=== PATIENT | male | born 1945 | race Hispanic/Latino ===

== ENCOUNTER → 2018-03-03 | Outpatient (CLI) | payer OTHER | END | disposition home or self-care (01) | LOC: SHCH 10:11 | PROVIDERS: ATTEND Internal Medicine Cardiovascular Disease | DX: R09.89 Other specified symptoms and signs involving the circulatory and respiratory systems (principal); R01.1 Cardiac murmur, unspecified | CPT/HCPCS: 93306 ==

== ENCOUNTER → 2018-03-10 | Outpatient (CLI) | payer OTHER | END | disposition home or self-care (01) | LOC: SHCH 09:56 | PROVIDERS: ATTEND Internal Medicine Cardiovascular Disease | DX: I65.23 Occlusion and stenosis of bilateral carotid arteries (principal); I73.9 Peripheral vascular disease, unspecified | CPT/HCPCS: 93880; 93925 ==

== ENCOUNTER 2018-04-18 07:24 | Day surgery (SDC) | payer OTHER ==
[2018-04-14 13:51] VITALS: BP 161/71
[2018-04-14 14:01] LABS: BASOPHILS % (AUTO) 0.8 % (0.0-5.0); EOSINOPHILS % (AUTO) 4.3 % (0.0-8.0); MEAN CORPUSCULAR HEMOGLOBIN 30.4 pg (27.0-33.0); MEAN CORPUSCULAR HGB CONC 33.6 g/dL (32.0-36.0); MEAN CORPUSCULAR VOLUME 90.7 fL (79-99); MONOCYTES % (AUTO) 8.5 % (3.0-13.0); NEUTROPHILS % (AUTO) 51.4 % (40.0-77.0); PLATELET COUNT (AUTO) 235 K/uL (130-400); RED BLOOD CELL COUNT(AUTO) 4.64 MIL/uL (4.50-6.20); WHITE BLOOD COUNT (AUTO) 8.1 K/uL (4.8-10.8)
[2018-04-14 14:06] LABS: CREATININE 1.4 mg/dL (0.5-1.5); POTASSIUM 5.1 mmol/L (3.5-5.1)
[2018-04-14 14:29] LABS: INR 0.86 (0.85-1.15); PARTIAL THROMBOPLASTIN TIME 25.3 SEC (26.3-35.5); PROTHROMBIN TIME 9.1 SEC (9.6-11.6)
[~2018-04-18] VITALS: Ht 175.3 cm; Wt 82.9 kg
[2018-04-18] VITALS (15 sets, daily range): BP systolic 92–164; BP diastolic 49–88
[~2018-04-18 07:24] MED LIST: ASPI-1197 PO; CANA300T PO; CLOP75TA14 PO; GLIP-220 PO; LEVO50TA11 PO; METO25TA6 PO; RAMI2.5C16 PO; REPA0.5T4 PO; SIMV40TA5 PO; SITA100T12 PO
[2018-04-18] MEDS ORDERED: SODIUM CHLORIDE 0.9% 1000ML 1,000 ML IV SCH (08:00)
[2018-04-18] MEDS ORDERED: LIDOCAINE HCL 2% VISCOUS 15 ML UDCUP ONE (08:21)
[2018-04-18] MEDS ORDERED: MIDAZOLAM HCL 1 MG/ML 2ML VIAL ONE ×3 (08:22)
[2018-04-18] MEDS ORDERED: FENTANYL CITRATE PF 50 MCG/1 ML 2ML VIAL ONE (08:23)
== END 2018-04-18 12:57 | disposition home or self-care (01) ==
LOC: DAH 07:24
PROVIDERS: ATTEND Internal Medicine Cardiovascular Disease
DX: I34.0 Nonrheumatic mitral (valve) insufficiency (principal); Z79.899 Other long term (current) drug therapy; I25.10 Atherosclerotic heart disease of native coronary artery without angina pectoris; I21.3 ST elevation (STEMI) myocardial infarction of unspecified site; Z95.1 Presence of aortocoronary bypass graft; E03.9 Hypothyroidism, unspecified; I10 Essential (primary) hypertension; E11.9 Type 2 diabetes mellitus without complications; E78.5 Hyperlipidemia, unspecified; Z82.49 Family history of ischemic heart disease and other diseases of the circulatory system; Z83.3 Family history of diabetes mellitus; Z95.5 Presence of coronary angioplasty implant and graft; Z68.28 Body mass index [BMI] 28.0-28.9, adult
CPT/HCPCS: 36415; 80048; 82948 ×2; 85025; 85610; 85730; 93313; A4606; J2250 ×2; J3010; 99156; 99157

== ENCOUNTER → 2021-12-14 | Outpatient (CLI) | payer MEDICARE ==
[~2021-12-14] MED LIST changes: -ASPI-1197 PO; -CLOP75TA14 PO; -GLIP-220 PO; +GLIP10TA19 PO; -RAMI2.5C16 PO; +RAMI2.5C55 PO; +REGADENOSON 0.4 MG/5 ML PF SYG IVP SCH; -REPA0.5T4 PO; +REPA0.5T6 PO; +SIMV-46 PO; -SIMV40TA5 PO
== END | disposition home or self-care (01) ==
LOC: SHCH 07:41
PROVIDERS: ATTEND Internal Medicine Cardiovascular Disease
DX: I11.9 Hypertensive heart disease without heart failure (principal); E11.9 Type 2 diabetes mellitus without complications; E78.5 Hyperlipidemia, unspecified; E03.9 Hypothyroidism, unspecified; Z95.1 Presence of aortocoronary bypass graft
CPT/HCPCS: 78452; 96374; 93017; J2785; A9500 ×2

== ENCOUNTER → 2023-11-09 | Outpatient (CLI) | payer MEDICARE ==
[~2023-11-09] MED LIST changes: -RAMI2.5C55 PO; +RAMI2.5C57 PO; -REGADENOSON 0.4 MG/5 ML PF SYG IVP SCH
== END | disposition home or self-care (01) ==
LOC: SHCH 08:34
PROVIDERS: ATTEND Internal Medicine Cardiovascular Disease
DX: I65.23 Occlusion and stenosis of bilateral carotid arteries (principal)
CPT/HCPCS: 93880

== ENCOUNTER → 2024-06-18 | Outpatient (CLI) | payer MEDICARE ==
[~2024-06-18] MED LIST changes: +REPA0.5T12 PO; -REPA0.5T6 PO
[2024-06-18 12:40] LABS: CREATININE 1.4 mg/dL (0.5-1.3); POTASSIUM 4.7 mmol/L (3.5-5.1)
== END | disposition home or self-care (01) ==
LOC: LAB 09:18
PROVIDERS: ATTEND Internal Medicine Cardiovascular Disease
DX: I10 Essential (primary) hypertension (principal)
CPT/HCPCS: 36415; 80048

== ENCOUNTER → 2024-06-25 | Outpatient (CLI) | payer MEDICARE ==
[~2024-06-25] MED LIST changes: +IOHEXOL 350 MG/ML 100ML INFUS..BTL IV ONE; +metoPROLOL tartRATE 1 MG/ML 5ML VIAL IV ONE
--- NOTE | 2024-06-25 09:51 | HMCIMG ---
CT CARDIAC ANGIO W/CONT. CCTA HISTORY: Ischemic cardiomyopathy COMPARISON: None TECHNIQUE: Multiple sequential axial images of the chest were obtained along with the CT angiogram of the chest study. Patient was given 100 cc of Omnipaque through intravenous route. FINDINGS: There is no evidence of pulmonary nodule or parenchymal disease. No pleural effusion or pericardial effusion is seen. There is no evidence of pneumothorax. There are normal size mediastinal and hilar lymph nodes. The heart is not enlarged. Degenerative changes of the thoracolumbar spine are present. IMPRESSION: 1. No evidence of pulmonary nodule or effusion is seen. Please see CT angiogram report of coronary arteries.
== END | disposition home or self-care (01) ==
LOC: RAH 07:43
PROVIDERS: ATTEND Internal Medicine Cardiovascular Disease
DX: I25.5 Ischemic cardiomyopathy (principal); M47.815 Spondylosis without myelopathy or radiculopathy, thoracolumbar region
CPT/HCPCS: 75574; J3490; Q9967

== ENCOUNTER 2024-08-20 07:18 | Day surgery (SDC) | payer MEDICARE ==
[2024-08-17 13:01] LABS: BASOPHILS # (AUTO) 0.05 K/uL (0.00-0.20); BASOPHILS % (AUTO) 0.6 % (0.0-5.0); EOSINOPHILS % (AUTO) 3.4 % (0.0-8.0); HEMATOCRIT 37.8 % (42-54); IMMATURE GRANULOCYTE ABSOLUTE 0.02 K/uL (0-1); LYMPHOCYTES # (AUTO) 2.5 K/uL (1.0-4.8); LYMPHOCYTES % (AUTO) 27.7 % (21.0-51.0); MEAN CORPUSCULAR HEMOGLOBIN 29.9 pg (27.0-33.0); MEAN CORPUSCULAR HGB CONC 31.5 g/dL (32.0-36.0); MONOCYTES # (AUTO) 0.7 K/uL (0.1-1.0); MONOCYTES % (AUTO) 7.7 % (3.0-13.0); NEUTROPHILS # (AUTO) 5.4 K/uL (1.8-7.7); NEUTROPHILS % (AUTO) 60.4 % (40.0-77.0); PLATELET COUNT (AUTO) 283 K/uL (130-400); RED BLOOD CELL COUNT(AUTO) 3.98 MIL/uL (4.50-6.20); RED CELL DISTRIBUTION WIDTH 13.4 % (11.0-15.5); WHITE BLOOD COUNT (AUTO) 8.9 K/uL (4.8-10.8)
[2024-08-17 13:07] LABS: CREATININE 1.4 mg/dL (0.5-1.3); POTASSIUM 4.7 mmol/L (3.5-5.1)
[2024-08-17 13:10] LABS: APPEARANCE,URINE CLEAR (CLEAR); BILIRUBIN,URINE NEGATIVE (NEGATIVE); COLOR,URINE LIGHT-YELLOW (YELLOW); GLUCOSE, URINE (UA) >=1000 mg/dL (NEGATIVE); KETONES,URINE NEGATIVE (NEGATIVE); LEUKOCYTE ESTERASE ,URINE NEGATIVE Leu/uL (NEGATIVE); NITRATE,URINE NEGATIVE (NEGATIVE); OCCULT BLOOD,URINE NEGATIVE (NEGATIVE); PH,URINE 5.5 (5.0-8.0); PROTEIN,URINE NEGATIVE (NEGATIVE); UROBILINOGEN,URINE 0.2 mg/dL (0.2-1.0)
[2024-08-17 13:11] LABS: ADD UA MICROSCOPIC YES; INR 0.96 (0.85-1.15); PROTHROMBIN TIME 10.2 SEC (9.6-11.6)
[2024-08-17 13:12] VITALS: BP 170/76; PULSE 71; RESP 18; TEMP 98.2
[2024-08-17 13:12] LABS: MUCUS,URINE RARE LPF (None Seen); PARTIAL THROMBOPLASTIN TIME 26.5 SEC (26.3-35.5); WBC,URINE 0-1 /HPF (0-1)
[2024-08-17 13:19] LABS: B-TYPE NATRIURETIC PEPTIDE 231 pg/mL (0-100)
--- NOTE | 2024-08-17 14:16 | HMCIMG ---
Exam Type: CHEST 1VW Clinical Information: PREOP Comparison: None Findings: There is cardiomegaly and there is status post median sternotomy. The lungs are clear of infiltrates. Impression: Clear lungs.
--- NOTE | 2024-08-17 15:21 | EKG ---
[facility] Test Date: 2024-08-17 Test Time: 12:52:20 Pat Name: PALOMA JENNINGS Department: [facility] Room: Gender: M Manager Finance: [id number] : 1945 Requested By: Silvio SAWYER Order Number: [id number] Reading MD: Tavares Martin Measurements Intervals [place] Rate: 66 P: 39 IN: 188 QRS: 35 QRSD: 99 T: 69 QT: 386 QTc: 406 Interpretive Statements Sinus rhythm No previous ECG available for comparison Electronically Signed On 08-19-2024 18:33:50 CDT by Tavares Martin Please click the below link to view image of tracing.
--- NOTE | 2024-08-17 16:08 | NUR ---
RE: LABS REPORTED BMP RESULTS TO PAUL HUERTAS. NO NEW ORDERS RECEIVED.
[2024-08-20] VITALS (9 sets, daily range): BP systolic 119–168; BP diastolic 33–76; PULSE 60–69; RESP 10–16; TEMP 97.2–97.6
[~2024-08-20] VITALS: Ht 172.7 cm; Wt 78.0 kg
[~2024-08-20 07:18] MED LIST changes: -CANA300T PO; +DAPA10TA PO; -GLIP10TA19 PO; +INSLAN SQ; -IOHEXOL 350 MG/ML 100ML INFUS..BTL IV ONE; +RIVA20TA PO; +SEMA7TAB2 PO; -SITA100T12 PO; -metoPROLOL tartRATE 1 MG/ML 5ML VIAL IV ONE
[2024-08-20] MEDS: 0.9%NACL 1000ML 1,000 ML IV SCH (07:56)
[2024-08-20] MEDS ORDERED: LIDOCAINE HCL 400MG/20ML VIAL ONE (09:11)
[2024-08-20] MEDS ORDERED: SODIUM BICARB 50MEQ 50ML VIAL 50 ML ONE (09:11)
[2024-08-20] MEDS ORDERED: NITROGLYCERIN 50MG VIAL ONE (09:12)
[2024-08-20] MEDS ORDERED: IOHEXOL 350 MG/ML 100ML INFUS..BTL IV ONE (09:12)
[2024-08-20] MEDS ORDERED: HEParin 10,000 UNIT/10ML (1,000 UNIT/ML) VIAL ONE (09:12)
[2024-08-20] MEDS ORDERED: HEParin-NS 1,000 UNIT/500 ML 1,000 ML IV ONE (09:12)
[2024-08-20] MEDS ORDERED: FENTanyl CITRate PF 50 MCG/1 ML 2ML VIAL ONE (09:31)
[2024-08-20] MEDS ORDERED: MIDAZOLAM HCL 1 MG/ML 2ML VIAL ONE ×2 (09:32→09:38)
[2024-08-20] MEDS ORDERED: cloPIDOgrel 300MG TAB ONE (10:25)
[2024-08-20] MEDS ORDERED: ASPIRIN 81MG CHEW TAB ONE (10:25)
[2024-08-20] MEDS ORDERED: 0.9%NACL 1000ML 1,000 ML IV SCH (11:00)
[2024-08-20] MEDS ORDERED: DEXTROSE 50%-WATER 50 ML DISP.SYRIN IV PRN (11:00)
[2024-08-20] MEDS ORDERED: GLUCAGON 1MG KIT 1 MG ML IM PRN (11:00)
[2024-08-20] MEDS ORDERED: INSULIN humuLIN R 100 UNIT/ML 3ML SQ SCH (11:30)
--- NOTE | 2024-08-20 12:21 | CCATH ---
PROCEDURES: * Left heart catheterization. * Diagnostic selective right and left coronary arteriogram. * Multiple saphenous vein graft angiogram. * ASTORGA angiogram. * PTCA and stent of the PDA. * PTCA and stent of the distal RCA. * Conscious sedation for 60 minutes. INDICATIONS: * Known history of coronary artery disease. * Status post remote anterior apical NC with an apical mural thrombus. * Status post remote coronary artery bypass graft surgery. * Abnormal coronary CT angiogram. COMPLICATIONS: None. TOTAL CONTRAST: 100 mL. DESCRIPTION OF PROCEDURE: The patient was taken to the cardiac catheterization lab after appropriate operative consents were signed. He was prepped and draped in the usual fashion. After conscious sedation was administered, the right common femoral artery region was infiltrated with 2% Xylocaine without epinephrine. A 6-Latvian sheath was advanced in retrograde fashion by the modified Seldinger technique. At this point, an FL4 6-Latvian catheter was advanced and selectively engaged in the ostium of the left main. The entire left coronary system was heavily calcified. The left main was imaged in multiplane. This was remarkable for the presence of a distal 80% stenotic lesion. The left main bifurcated into LAD, circumflex. Circumflex coronary artery was 100% occluded at its ostium and was not visualized by [place] injection. The LAD was a heavily calcified vessel that had a severe stenotic lesion in its proximal portion before the first diagonal, which was a small vessel that had an ostial 95% lesion. The LAD had a stent distal to the first diagonal; however, just distal to the stent, the LAD was 100% occluded and was not visualized by [place] injection. At this point, the catheter was withdrawn. An FR4 6-Latvian catheter was advanced and placed in left ventricular cavity. Left ventricular end-diastolic pressure measurement was obtained. Ventriculography was deferred. The patient has a questionable apical mural thrombus. We will have an echocardiogram to assess that. Pullback revealed no aortic stenosis. At this point, the catheter was engaged in the ostium of the right coronary artery. This was imaged in multiplane. This was a sizable vessel that had diffuse severe disease and was heavily calcified vessel. The ostium had an 80% stenotic lesion and the proximal to mid 1/3 had a 75% tubular long segment of stenosis. The mid RCA had a 95% stenosis at the level of the acute marginal, which also had a 95% stenosis was a small vessel. The RCA distally had an 80% lesion after an area of what appears to be an anastomotic segment of the vein graft. The RCA bifurcated into PDA and branching PLVB. The PDA had an ostial 80% lesion. At this point, the catheter was withdrawn and engaged in the saphenous vein graft to the RCA, which was a patulous ectatic vessel with slow flow, however, it had adequate flow to the distal RCA. There was evidence of 80% stenosis in the RCA distal to the anastomosis as mentioned as well as in the PDA. The PLVB was normal. The catheter was then engaged in the saphenous vein graft to the high OM1. This was occluded 100% proximal to the graft, however, the graft supplied a branching vessel that was small, but had adequate flow. At this point, the catheter was engaged in the left internal mammary artery. This was a small to moderately sized mammary that had adequate flow to a small to moderately sized LAD. There were no stenotic lesions. Given the patient's presentation, the decision was made to proceed with angioplasty and stenting of the distal RCA and the PDA through the saphenous vein graft. Right coronary bypass graft catheter was selected and engaged in the ostium of the right coronary artery. This was done after full heparinization and checking the ACT. A 0.014 wire was advanced to position the distal PDA. At this point, we were able to advance a 2.5 x 18 stent to cover the ostium and proximal PDA and the distal RCA. This was deployed to 10 atmospheres. Following that, we advanced a 2.5 NC balloon in the proximal portion of the stent, which is the distal portion of the [place] RCA and away from the PDA and we inflated that to 18 and 20 atmospheres at 2.59 and 2.63 mm size. The final angiographic result was quite good. Vascade was utilized with good hemostasis. The patient tolerated the procedure well and left the cardiac catheterization lab in stable condition. FINAL IMPRESSION: * Severe [place] 3-vessel coronary artery disease. * Abnormal coronary CTA. * Patent ASTORGA to LAD, patent saphenous vein graft to a small OM1, and patent ectatic and patulous vein graft to the distal RCA to the severe stenosis distal to the anastomosis and into the PDA. * No aortic stenosis. * Successful PTCA and stenting of the distal RCA and the PDA with a 2.5 Jae [place] stent, postdilated to 20 atmospheres in the RCA segment, but not in the PDA segment with good angiographic results. PLAN: Continue medical management. TID: [id number] RECEIPT: [id number]
--- NOTE | 2024-08-20 12:43 | NUR ---
URINARY: VOIDED 400 CC YELLOW COLOR URINE PER URINAL WITHOUT DIFFICULTY.
--- NOTE | 2024-08-22 09:15 | HMCSR ---
APPROVED REPORT EXAM: Two-dimensional and M-mode echocardiogram with Doppler and color Doppler. INDICATION ICD: CAD 2D Dimensions RVDd4.0 cmLVEF(%)44.2 (>50%)LVED Vol(simp.)85.0 mL IVSd0.9 (0.7-1.1cm)FS(%)22 %LVES Vol(simp.)43.0 mL LVDd5.2 (3.8-5.6cm)LA (2D)3.8 (1.6-4.0cm)LVEF(%, simp.)49 % PWd0.9 (0.7-1.1cm)Ao Root(2D)3.3 (2.0-3.7cm)LA ESV INDEX (BP)24.82 mL/m2 IVSs0.9 cmLVOT diam2.2 (1.8-2.4cm) LVDs4.0 (2.5-4.0cm) PWs0.9 cm M-Mode Dimensions EPSS1.1 cm LA (MM)4.5 (1.6-4.0cm) Ao Root(MM)3.1 (2.0-3.7cm) Aortic Valve AoV Vmax1.0 m/Laura Peak GR3.8 mmHgLVOT Vmax0.8 m/s AoV VTI0.2 mAo Mean GR2.2 mmHgLVOT VTI0.16 m MARIO (VMAX)3.1 cm2AVA (VTI) 3.1 cm2 Mitral Valve MV E Vmax53.4 cm/sDECEL Grdy138 ms MV A Vmax62.9 cm/sP 1/2 T56 ms E/A ratio0.8MVA (PHT)3.9 cm2 TDI E/E' Medial8.9 Medial E' Peak V6.00 cm/s Pulmonary Valve PV Vmax0.8 m/s Left Ventricle The left ventricle is mildly dilated. Michael-apical thinning and akinesis. There is normal left ventr icular wall thickness. LVEF is 40%. No left ventricle thrombus noted on this study. The left ventricu lar diastolic function is normal. Right Ventricle The right ventricle is normal size. Atria The left atrium is mildly dilated. The right atrium size is normal. Aortic Valve The aortic valve is mildly sclerotic. No aortic regurgitation is present. There is no aortic valvular stenosis. Mitral Valve Mitral annular calcification is mild. There is no mitral valve regurgitation noted. There is no freedom l valve stenosis. Tricuspid Valve The tricuspid valve is normal in structure and function. There is no tricuspid valve regurgitation no norberto. Pulmonic Valve The pulmonary valve is normal in structure and function. There is no pulmonic valvular regurgitation. Great Vessels The aortic root is normal in size. IVC is not well visualized. Pericardium No pericardial effusion. Conclusion The left ventricle is mildly dilated. LVEF is 40%. Michael-apical thinning and akinesis. The right ventricle is normal size. The left atrium is mildly dilated. The aortic valve is mildly sclerotic. No aortic regurgitation is present. There is no aortic valvular stenosis. Mitral annular calcification is mild. There is no mitral valve regurgitation noted. There is no mitral valve stenosis. The tricuspid valve is normal in structure and function. There is no pulmonic valvular regurgitation. The aortic root is normal in size. No pericardial effusion.
== END 2024-08-20 15:00 | disposition home or self-care (01) ==
LOC: DAH 07:18
PROVIDERS: ATTEND Internal Medicine Cardiovascular Disease
DX: R93.1 Abnormal findings on diagnostic imaging of heart and coronary circulation (principal); I25.118 Atherosclerotic heart disease of native coronary artery with other forms of angina pectoris; T82.858A Stenosis of other vascular prosthetic devices, implants and grafts, initial encounter; I35.8 Other nonrheumatic aortic valve disorders; I25.2 Old myocardial infarction; I10 Essential (primary) hypertension; E78.5 Hyperlipidemia, unspecified; E03.9 Hypothyroidism, unspecified; E11.9 Type 2 diabetes mellitus without complications; Z95.5 Presence of coronary angioplasty implant and graft; Z79.01 Long term (current) use of anticoagulants; Z79.4 Long term (current) use of insulin; Z79.899 Other long term (current) drug therapy; Y71.2 Prosthetic and other implants, materials and accessory cardiovascular devices associated with adverse incidents
CPT/HCPCS: 80048; 83880; 85025; 85610; 85730; 81001; 36415 ×2; 71045; 93005; 93459; 85347 ×2; 82948 ×2; 93306; C9604; C1769; C1894; C1874; C1887; C1760; Q9965; C1725; J3010; J3490 ×3; J7030; J1644 ×2; J2250 ×2; Q9967; A4215; A4222; A4221; A4663; A4216; A4606; A4223 ×3; 96360; 96361; 99156; 99157

== ENCOUNTER → 2024-12-04 | Outpatient (CLI) | payer MEDICARE ==
[~2024-12-04] MED LIST changes: +GADOTERATE MEGLUMINE 10 MMOL/20 ML VIAL IV ONE
--- NOTE | 2024-12-05 10:22 | HMCIMG ---
EXAM: MR Lumbar Spine with and Without Intravenous Contrast. CLINICAL HISTORY: Left foot drop. TECHNIQUE: Magnetic resonance images of the lumbar spine in multiple planes. CONTRAST: 17 ml Clariscan. COMPARISON: None. FINDINGS: For this examination, spinal levels were labeled assuming five non-rib bearing, lumbar-type vertebrae with the inferior labeled L5. No acute fracture. Partial loss of the normal lordotic curvature. Normal vertebral body heights. Normal marrow signal of the vertebrae. Moderate lumbar spondylosis with multilevel marginal osteophytes, facet arthropathy, ligamentum flavum hypertrophy, disc desiccation and degenerative disc space reduction, most pronounced at L5-S1. Conus medullaris terminates at the T12-L1 level. No abnormal epidural masses. No abnormal post-contrast enhancement. No pre or paravertebral collection. The surrounding soft tissues are unremarkable. Individual spinal levels are described as follows: T12-L1: No disc bulge or herniation. No neural foraminal, lateral recess or spinal canal stenosis. L1-L2: 1-2 mm diffuse disc bulge. No neural foraminal, lateral recess or spinal canal stenosis. L2-L3: 2 mm diffuse disc bulge. No neural foraminal, lateral recess or spinal canal stenosis. L3-L4: 3 mm diffuse disc bulge. Bilateral ligamentum flavum and facet hypertrophy. Moderate bilateral lateral recess and mild bilateral neural foraminal stenosis. No spinal canal stenosis. Bilateral traversing nerve root impingement. L4-L5: 4 mm diffuse disc bulge. Moderate bilateral lateral recess and neural foraminal stenosis. No spinal canal stenosis. L5-S1: 2-3 mm posterior disc osteophyte complex bulge. Bilateral facet hypertrophy. Mild right and moderate left lateral recess and neural foraminal stenosis. No spinal canal stenosis. Incidental 1.8 cm hypointense lesion at the upper pole of the left kidney, appearing hyperintense on the post-contrast images. IMPRESSION: Moderate lumbar spondylosis with multilevel marginal osteophytes, facet arthropathy, ligamentum flavum hypertrophy, disc desiccation and degenerative disc space reduction, most pronounced at L5-S1. No abnormal post-contrast enhancement. No pre or paravertebral collection. Diffuse disc bulges from L1-L2 through L5-S1. Moderate bilateral lateral recess and mild bilateral neural foraminal stenosis at L3-L4 with bilateral traversing nerve root impingement. Moderate bilateral lateral recess and neural foraminal stenosis at L4-L5. Mild right and moderate left lateral recess and neural foraminal stenosis at L5-S1. Incidental 1.8 cm hypointense lesion at the upper pole of the left kidney, appearing hyperintense on the post-contrast images. This would require contrast-enhanced CT abdomen and pelvis for further evaluation. /Ethel
== END | disposition home or self-care (01) ==
LOC: RAH 10:59
PROVIDERS: ATTEND Family Medicine
DX: M47.817 Spondylosis without myelopathy or radiculopathy, lumbosacral region (principal); M51.379 Other intervertebral disc degeneration, lumbosacral region without mention of lumbar back pain or lower extremity pain; M48.07 Spinal stenosis, lumbosacral region; M25.78 Osteophyte, vertebrae; N28.89 Other specified disorders of kidney and ureter; M21.371 Foot drop, right foot; M21.372 Foot drop, left foot
CPT/HCPCS: 72158; A9575

== ENCOUNTER → 2024-12-14 | Outpatient (CLI) | payer MEDICARE ==
[~2024-12-14] MED LIST changes: -GADOTERATE MEGLUMINE 10 MMOL/20 ML VIAL IV ONE; +IOHEXOL-350 75 ML VIAL IV ONE
--- NOTE | 2024-12-15 04:56 | HMCIMG ---
EXAM: CT Abdomen and Pelvis without and with IV contrast. CLINICAL HISTORY: Left kidney mass. TECHNIQUE: Thin collimated axial CT images of the abdomen and pelvis were obtained with sagittal and coronal reformatted images also submitted. CT scan done according to ALARA (As Low As Reasonably Achievable). Intravenous contrast was administered. COMPARISON: None. FINDINGS: 2 mm subpleural right middle lobe nodule (series 2, image 2). Post-sternotomy sutures with coronary artery calcifications. There is no focal abnormality appreciated within the liver, gallbladder, pancreas, spleen, or adrenals. There is a hyperdense cyst (average HU 50) at the upper pole of the left kidney measuring about 1.7 x 1.8 x 1.9 cm (CC x AP x TR) with no significant post-contrast enhancement. There is diffuse wall thickening of the body of the stomach measuring up to 2.3 cm. Bowel loops are normal in caliber without evidence of obstruction or ileus. The appendix is normal. Fecal loading of the large bowel loops. There is no abnormality within the urinary bladder. Moderate prostatomegaly measuring about 5.2 x 4.7 x 6.2 cm. Abdominal and pelvic vessels are patent. Severe calcific atheromatous plaques in the abdominal aorta and its branches. No significant lymphadenopathy. No free fluid. Large indirect left inguinal hernia containing descending colon and mesenteric fat as contents. No evidence of obstruction or incarceration. There is no acute osseous abnormality. Mild degenerative osseous changes. IMPRESSION: 1. 1.7 x 1.8 x 1.9 cm hyperdense non-enhancing cyst (50 HU) in the upper pole of the left kidney, likely representing proteinaceous versus hemorrhagic cyst. 2. Diffuse gastric wall thickening up to 2.3 cm in the body of the stomach. This could represent an inflammatory or neoplastic etiology. Recommend histopathological correlation. 3. Large left indirect inguinal hernia containing descending colon and mesenteric fat, without obstruction or incarceration. 4. Moderate prostatomegaly. /[place]
== END | disposition home or self-care (01) ==
LOC: RAH 09:33
PROVIDERS: ATTEND Family Medicine
DX: N28.1 Cyst of kidney, acquired (principal); N40.0 Benign prostatic hyperplasia without lower urinary tract symptoms; K40.90 Unilateral inguinal hernia, without obstruction or gangrene, not specified as recurrent; R91.1 Solitary pulmonary nodule; K31.89 Other diseases of stomach and duodenum; I25.10 Atherosclerotic heart disease of native coronary artery without angina pectoris; I70.0 Atherosclerosis of aorta; M47.817 Spondylosis without myelopathy or radiculopathy, lumbosacral region; N28.89 Other specified disorders of kidney and ureter
CPT/HCPCS: 74178; Q9967